=== PATIENT | female | born 1995 | race Two or more races ===

== ENCOUNTER 2023-03-22 11:12 | Outpatient (AMB) | payer OTHER, SELFPAY ==
[2023-03-22 11:26] VITALS: BP 144/90; PULSE 81; O2SAT 98
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
== END 2023-03-22 12:46 | disposition home or self-care (01) ==
PROVIDERS: PCP Family Medicine; Referring Provider Physician Assistant; Visit Provider Nurse Practitioner Family
DX: G43.009 Migraine without aura, not intractable, without status migrainosus (principal); G47.9 Sleep disorder, unspecified; G47.19 Other hypersomnia; R06.83 Snoring; R42 Dizziness and giddiness; G25.81 Restless legs syndrome; D64.9 Anemia, unspecified
CPT/HCPCS: 99204

== ENCOUNTER → 2023-03-22 11:12 | Outpatient (BNVA) | payer OTHER, SELFPAY | PROVIDERS: PCP Family Medicine; Referring Provider Physician Assistant; Visit Provider Nurse Practitioner Family | DX: G43.009 Migraine without aura, not intractable, without status migrainosus (principal); G47.19 Other hypersomnia; R06.83 Snoring; R42 Dizziness and giddiness; G25.81 Restless legs syndrome; D64.9 Anemia, unspecified | CPT/HCPCS: 99202 ==

== ENCOUNTER → 2023-05-02 13:09 | Outpatient (REF) | payer OTHER, SELFPAY | LOC: HO.SL 13:09 | PROVIDERS: PCP Family Medicine; Visit Provider Nurse Practitioner Family | DX: G47.9 Sleep disorder, unspecified (principal); G47.19 Other hypersomnia; R06.83 Snoring | CPT/HCPCS: 95806 ==

== ENCOUNTER → 2023-05-02 13:34 | Outpatient (BNV) | payer OTHER, SELFPAY | PROVIDERS: PCP Family Medicine; Visit Provider Psychiatry & Neurology Neurology | DX: R06.83 Snoring (principal) | CPT/HCPCS: 95806 ==

== ENCOUNTER → 2023-06-15 20:30 | Outpatient (REF) | payer OTHER, SELFPAY | LOC: HO.SL 20:30 | PROVIDERS: PCP Family Medicine; Visit Provider Nurse Practitioner Family | DX: G47.19 Other hypersomnia (principal); G47.9 Sleep disorder, unspecified; R06.83 Snoring | CPT/HCPCS: 95810 ==

== ENCOUNTER → 2023-06-15 21:16 | Outpatient (BNV) | payer OTHER, SELFPAY | PROVIDERS: PCP Family Medicine; Visit Provider Psychiatry & Neurology Neurology | DX: G47.19 Other hypersomnia (principal) | CPT/HCPCS: 95810 ==